=== PATIENT | male | born 2000 | race Caucasian/White ===

== ENCOUNTER 2020-04-10 01:58 | Emergency (ER) | payer OTHER, SELFPAY ==
[2020-04-10 01:59] VITALS: BP 142/75; PULSE 91; RESP 17; TEMP 36.7; O2SAT 99; BMI 30.7
--- NOTE | 2020-04-10 02:06 | ED.DCSUM_ITS ---
- ER Visit Summary Date of Service: 04/10/20 Chief Complaint: Scalp laceration at work History of Present Illness: The patient is a 19 M no seen in past medical history. Patient was working tonight stood up and hit his head on a mixer blade. No LOC. This occurred within the last hour. Has about a 1 inch laceration to his right anterior scalp. Tetanus is up-to-date. Denies any other injuries. Physical Examination: Well-appearing young male no acute distress vital signs are stable and afebrile. H EENT exam is a diagonal about a 1 inch 2.5 cm laceration to his right anterior scalp. Mild bleeding. No foreign body. No signs of infection. Otherwise his face is unremarkable.signs of trauma. Rest of his scalp is nontender. C-spine nontender. Lungs are clear equal and symmetrical bilaterally. Heart regular rhythm no murmur. Abdomen soft nontender. Patient moving all 4 extremities. Neurologically is awake and alert with no focal motor deficits. GCS of 15. Test Results: None Emergency Department Course and Treatment: Tetanus is up-to-date. Procedure note: Right anterior scalp laceration of 2.5 cm. Locally anesthetized with 1% lidocaine. Cleaned with Shur-Clens and irrigated with saline and ex plored. Closed using 5-0 times 3 simple interrupted suture. Proper hemostasis and wound closure obtained. Patient tolerated procedure well. Instructed on wound care. Treatment Plan: Suture removal in 7 days. Return if worse. Disposition: Discharge Impression: Acute 2.5 cm right scalp laceration with ER suture repair Closed head injury Worker's Comp. injury This note was generated with [employer] dictation software. It may contain incorrect words, spelling, and punctuation that were not noted in review of the chart prior to signing ED Disposition - Plan for ED Patient: Disposition: Home or Assisted Living Instructions: ED Laceration Scalp Sutures or [place] Referrals: [facility] [GROUP OF PHYSICIANS] - 7 Days for suture removal Additional Instructions: Ice to the laceration to decrease swelling. Tylenol Motrin for pain. Keep area clean and dry. May shower or bathe wash gently and dry gently. Watch for any signs of infection such as pus, redness or fever. Suture removal in 7 and no more than 10 days.
--- NOTE | 2020-04-10 02:09 | ED.DEP ---
ED Disposition - Plan for ED Patient: Disposition: Home or Assisted Living Instructions: ED Laceration Scalp Sutures or [place]errals: [facility]YSIC[facility]] - 7 Days for suture removal Additional Instructions: Ice to the laceration to decrease swelling. Tylenol Motrin for pain. Keep area clean and dry. May shower or bathe wash gently and dry gently. Watch for any signs of infection such as pus, redness or fever. Suture removal in 7 and no more than 10 days.
[2020-04-10 02:38] VITALS: BP 134/70; PULSE 75; RESP 16; O2SAT 98
== END 2020-04-10 03:02 | disposition home or self-care (01) ==
LOC: ED 03:01
PROVIDERS: Emergency Provider Emergency Medicine; PCP Pediatrics
DX: S01.01XA Laceration without foreign body of scalp, initial encounter (principal); R40.2410 Glasgow coma scale score 13-15, unspecified time; M41.9 Scoliosis, unspecified; W22.8XXA Striking against or struck by other objects, initial encounter; Y93.9 Activity, unspecified; Y92.9 Unspecified place or not applicable
CPT/HCPCS: 12001; 99283